=== PATIENT | female | born 1985 | race African-American/Black ===

== ENCOUNTER 2023-04-21 15:36 | Emergency (ER) | payer SELFPAY ==
[~2023-04-21] VITALS: Ht 175.3 cm; Wt 130.3 kg
[2023-04-21] MEDS ORDERED: amLODIPine BESYLATE 5 MG TAB PO ONE (16:00)
[2023-04-21] MEDS ORDERED: cefTRIAXone SOD 1,000 MG VL IM ONE (17:30)
[2023-04-21] MEDS ORDERED: methylPREDNISolone SOD SUCC 40 MG/ML VL IM ONE (17:30)
[2023-04-21 17:40] VITALS: BP 144/100; PULSE 89; RESP 18; O2SAT 99
[2023-04-21] MEDS ORDERED: PRED20TA2 PO (17:45)
[2023-04-21] MEDS ORDERED: AZIT500T66 PO (17:45)
[2023-04-21] MEDS ORDERED: AML5T PO (17:45)
[2023-04-21] MEDS ORDERED: PROM1SOL4 PO (17:45)
== END 2023-04-21 17:57 | disposition home or self-care (01) ==
LOC: ER 15:36
DX: J45.909 Unspecified asthma, uncomplicated (principal); J03.90 Acute tonsillitis, unspecified; R03.0 Elevated blood-pressure reading, without diagnosis of hypertension
CPT/HCPCS: 71045; 96372; 99284; J0696; J2920